=== PATIENT | male | born 1970 | race African-American/Black ===

== ENCOUNTER 2024-07-25 20:23 | Emergency (ER) | payer BC ==
[2024-07-25] MEDS ORDERED: Nitroglycerin 0.4 MG TAB 1 EACH ONE (20:41)
[2024-07-25] MEDS ORDERED: Aspirin Chewable 81 MG TAB ONE (20:42)
[2024-07-25 21:02] LABS: ALT (SGPT) 28 U/L (8-55); AST (SGOT) 21 U/L (5-34); Albumin 4.2 g/dL (3.5-5.0); Alkaline Phosphatase 68 U/L (40-110); Anion Gap 15 mmol/L (10-20); BUN (Urea Nitrogen) 19 mg/dL (8.4-25.7); Bilirubin, Total 0.4 mg/dL (0.2-1.2); Calc. Creatinine Clearance 0 mL/min (70-130); Calcium 10.1 mg/dL (7.8-10.44); Carbon Dioxide 27 mmol/L (22-29); Chloride 103 mmol/L (98-107); Estimated GFR 99; Glucose 93 mg/dL (70-105); Potassium 4.1 mmol/L (3.5-5.1); Protein, Total 8.2 g/dL (6.0-8.3); Sodium 141 mmol/L (136-145)
[2024-07-25 21:04] LABS: Troponin I Less than 0.010 ng/mL (< 0.028)
[2024-07-25 21:22] LABS: Hematocrit 49.3 % (42.0-52.0); Hemoglobin 15.2 g/dL (14.0-18.0); MDiff Complete? YES; Mean Corpuscular HGB CONC 30.7 g/dL (32.0-36.0); Mean Corpuscular Hemoglobin 30.2 pg (27.0-31.0); Mean Corpuscular Volume 97.8 fl (78.0-98.0); Mean Platelet Volume 7.8 fL (7.4-10.4); Platelet Count 320 10x3/uL (130-400); RBC Distribution Width 11.9 % (11.5-14.5); Red Blood Cell (RBC) Count 5.05 mill/uL (4.70-6.10); White Blood Cell (WBC) Count 13.9 10x3/uL (4.8-10.8)
[2024-07-25 21:23] LABS: Eosinophils 2 % (0-10); Lymphocytes 27 % (21-51); Monocytes 2 % (0-10); Neutrophil 68 % (42-75); Platelet Adequacy Comment Appears Adequate
[2024-07-26 00:06] LABS: Troponin I 0.014 ng/mL (< 0.028)
== END 2024-07-26 00:52 | disposition home or self-care (01) ==
LOC: BURERS 20:23
DX: R07.89 Other chest pain (principal); I10 Essential (primary) hypertension
CPT/HCPCS: 71045; 80053; 83880; 84484; 85025; 93005; 94760